=== PATIENT | male | born 1985 | race Caucasian/White ===

== ENCOUNTER 2017-08-22 21:32 | Observation (INO) | payer MEDICAID ==
[~2017-08-22 21:32] MED LIST: DEXAMETHASONE SOD PHOS 4 MG/ML VIAL IV ONE; GLYCOPYRROLATE 1 MG/5 ML SYRINGE IV PUSH ONE; KETOROLAC TROMETHAMINE 30 MG/ML (IVP) VIAL IV PUSH ONE; LACTATED RINGER'S 1000 ML INJ 1,000 ML IV ONE; LIDOCAINE HCL 1% PF 5 ML SYRINGE OTHER ONE; NEOSTIGMINE 5 MG/5 ML SYRINGE IV PUSH ONE; ONDANSETRON HCL 4 MG/2 ML VIAL IV ONE; PROPOFOL 200 MG/20 ML AMP IV ONE; ROCURONIUM INJ 50 MG/5 ML SYRINGE IV PUSH ONE; SUCCINYLCHOLINE CHLORIDE 200 MG/10 ML VIAL IV ONE; ceFAZolin INJ 1,000 MG VIAL IV ONE
[2017-08-22] MEDS ORDERED: BUPIVACAINE/EPINEPHRINE 0.5% PF 30 ML VIAL ONE (22:14)
[2017-08-22] MEDS ORDERED: HYDROmorphone HCL PF 2 MG/ML VIAL IV PRN (23:45)
[2017-08-23] MEDS ORDERED: KETOROLAC TROMETHAMINE 30 MG/ML (IVP) VIAL IVP PRN
[2017-08-23] MEDS ORDERED: diphenhydrAMINE HCL 50 MG/ML VIAL IVP PRN
[2017-08-23] MEDS ORDERED: SODIUM CHLORIDE 0.9% FLUSH 10 ML FLUSH IV FLUSH PRN
[2017-08-23] MEDS ORDERED: ACETAMINOPHEN/HYDROcodone 325 MG/5 MG TAB PO PRN ×2
[2017-08-23] MEDS ORDERED: ONDANSETRON HCL 4 MG/2 ML VIAL IV PUSH PRN
[2017-08-23] MEDS ORDERED: Post-op Orders (for Pharmacy) XX ONE
[2017-08-23] MEDS ORDERED: ACETAMINOPHEN 1000 MG/100 ML 100 ML IV ONE (00:01)
--- NOTE | 2017-08-23 00:11 | HHI.PR ---
Immediate Post Op Note Procedure Date: Aug 23, 2017 Pre Op Diagnosis: acute appendicitis Post Op Diagnosis: same Surgeon: Orlando Flannery MD Rn Hedis(s): see or sheet Procedure: lap appy Findings: inflamed non perf appy Complications: none Specimen(s) removed: appendix Estimated blood loss: 5cc Anesthesia: General Drains: None Patient to: PACU Patient Condition: Good Orlando Flannery MD Aug 23, 2017 00:11
[2017-08-23] MEDS ORDERED: MIDAZOLAM HCL 2 MG/2 ML VIAL ONE (01:11)
[2017-08-23] MEDS ORDERED: POVIDONE IODINE 5% (ANTISEPSIS KIT) 4 APPLICATIONS EACH NARE PRN (01:30)
[2017-08-23] MEDS ORDERED: LACTATED RINGER'S 1000 ML IV PRN (01:30)
[2017-08-23] MEDS ORDERED: DO NOT ADM ANY ANTICOAGULANT DRUGS PRN (01:30)
[2017-08-23] MEDS ORDERED: CHLORHEXIDINE GLUCONATE 2 % 1 PACK (2 CLOTHS) TOPICAL PRN (01:30)
[2017-08-23 02:15] VITALS: BP 105/55; PULSE 65; RESP 15; TEMP 97.1; O2SAT 100
[2017-08-23 04:00] VITALS: BP 129/59; PULSE 88; RESP 15; TEMP 97.3; O2SAT 95
[2017-08-23 06:56] LABS: AUTOMATED NEUTROPHIL # 12.6 TH/MM3 (1.8-7.7); HEMOGLOBIN 13.3 GM/DL (13.0-17.0); LYMPH % 7.5 % (9.0-44.0); MEAN CELL VOLUME 92.9 FL (80.0-100.0); MEAN CORPUSCULAR HEMOGLOBIN 33.4 PG (27.0-34.0); MEAN CORPUSCULAR HGB CONC 35.9 % (32.0-36.0); MEAN PLATELET VOLUME 8.8 FL (7.0-11.0); MONO % 1.6 % (0.0-8.0); MONOCYTE # 0.2 TH/MM3 (0-0.9); NEUT % 90.9 % (16.0-70.0); PLATELET COUNT 207 TH/MM3 (150-450); RED BLOOD COUNT 3.99 MIL/MM3 (4.50-5.90); RED CELL DISTRIBUTION WIDTH 13.1 % (11.6-17.2); WHITE BLOOD COUNT 13.9 TH/MM3 (4.0-11.0)
[2017-08-23 07:20] LABS: BICARBONATE 26.9 MEQ/L (21.0-32.0); CALCIUM 8.9 MG/DL (8.5-10.1); CREATININE 1.06 MG/DL (0.60-1.30)
[2017-08-23 08:00] VITALS: BP 113/59; PULSE 60; RESP 14; TEMP 97.2; O2SAT 98
--- NOTE | 2017-08-23 08:54 | MH ---
cc: RUBEN ALTAMIRANO MD DATE OF ADMISSION 08/23/2017 CHIEF COMPLAINT Abdominal pain, appendicitis. HISTORY OF PRESENT ILLNESS The patient is 31-year-old male who presents to [facility] with an acute onset of abdominal pain. He states the pain started around 02:00 p.m. and continued to get worse, than it was a 9/10, sharp, radiating from his umbilicus to his right lower quadrant. It was better with lying still, worse with movement, had some associated nausea and never had pain quite like this severe. He had a CT scan evaluation with findings of concern for acute appendicitis. The patient also with leukocytosis of 16,000. Therefore surgery consulted for further evaluation. PAST MEDICAL HISTORY No past medical history. PAST SURGICAL HISTORY No surgeries. ALLERGIES NO KNOWN DRUG ALLERGIES. MEDICATIONS See EMR. FAMILY HISTORY Denies diabetes or hypertension. SOCIAL HISTORY Denies smoking, occasional ETOH, denies IVDA. REVIEW OF SYSTEMS GENERAL: Denies fevers or chills. HEENT: Denies eye pain or ear pain. NECK: Denies swelling or pain. LUNGS: Denies cough or wheeze. HEART: Denies palpitations or chest pain. ABDOMEN: Complaint of abdominal pain and nausea. Denies vomiting. : Denies dysuria or hematuria. ENDOCRINE: Denies polyuria, polydipsia. EXTREMITIES: Denies arthralgia or myalgias. PSYCH: Denies change in mood or sensorium. PHYSICAL EXAMINATION VITAL SIGNS: Temperature 98.2, pulse 78, respirations 12, blood pressure 133/77, saturation 100%. HEENT: Normocephalic, atraumatic. Pupils equal, round, and reactive. NECK: Supple. Trachea midline. LUNGS: Clear to auscultation bilateral. Bilateral expansion. HEART: S1-S2 regular rhythm. ABDOMEN: Soft, positive tenderness to palpation in the right lower quadrant. Minimal rebound, nondistended. EXTREMITIES: Warm, well-perfused. No edema. NEUROLOGIC: 5/5 motor in all extremities. AO x four. INTEGUMENT: No obvious masses or lesions. PSYCH: Appropriate judgment, appropriate insight. LABORATORY AND DIAGNOSTIC DATA WBC 16.2, hemoglobin 13.7, hematocrit 36.3, platelets 220. Sodium 140, potassium 3.7, chloride 106, BUN 13, creatinine 1, AST is 36, ALT 61, alkaline phosphatase 111, lipase 134, INR is 1. CT reviewed by myself showing acute appendicitis. No evidence of abscess. ASSESSMENT The patient is a 31-year-old male who presents with acute onset of appendicitis. PLAN After a full clinical, radiologic and laboratory workup, the patient with above-named issues including acute appendicitis. At this point, the patient will go to the operating room for intervention including laparoscopic appendectomy. Discussed with the patient in detail. He states understanding and agrees and would like to proceed. We will keep the patient n.p.o., IV fluids, pain control and IV antibiotics. MD LAKIA Gray/JIN /11:50 PM /8:35 AM
[2017-08-23] MEDS ORDERED: DOCUSATE SODIUM 100 MG CAP PO SCH (09:00)
[2017-08-23] MEDS: SODIUM CHLORIDE 0.9% FLUSH 10 ML FLUSH IV FLUSH SCH ×2 (09:00)
[2017-08-23] MEDS: SODIUM CHLOR 0.9% 1000 ML INJ 1,000 ML IV SCH ×2 (10:00)
[2017-08-23] MEDS: metroNIDAZOLE 500 MG INJ 100 ML IV SCH ×2 (11:09→18:11)
[2017-08-23 12:00] VITALS: BP 115/67; PULSE 61; RESP 15; TEMP 96.9; O2SAT 100
[2017-08-23 15:07] LABS: AUTOMATED NEUTROPHIL # 9.5 TH/MM3 (1.8-7.7); BASOPHIL % 0.2 % (0.0-2.0); EOSINOPHIL % 0.1 % (0.0-4.0); HEMATOCRIT 37.7 % (39.0-51.0); HEMOGLOBIN 13.4 GM/DL (13.0-17.0); LYMPH % 12.8 % (9.0-44.0); LYMPHOCYTE # 1.5 TH/MM3 (1.0-4.8); MEAN CELL VOLUME 92.6 FL (80.0-100.0); MEAN CORPUSCULAR HGB CONC 35.6 % (32.0-36.0); MEAN PLATELET VOLUME 9.2 FL (7.0-11.0); MONO % 4.9 % (0.0-8.0); MONOCYTE # 0.6 TH/MM3 (0-0.9); PLATELET COUNT 202 TH/MM3 (150-450); RED BLOOD COUNT 4.08 MIL/MM3 (4.50-5.90); RED CELL DISTRIBUTION WIDTH 12.8 % (11.6-17.2); WHITE BLOOD COUNT 11.6 TH/MM3 (4.0-11.0)
[2017-08-23] MEDS ORDERED: HYDR-3516 PO (15:55)
[2017-08-23 16:00] VITALS: BP 112/58; PULSE 66; RESP 16; TEMP 98; O2SAT 100
[2017-08-24] MEDS ORDERED: ENOXAPARIN SODIUM 30 MG/0.3 ML SYRINGE SQ SCH
--- NOTE | 2017-08-25 13:45 | MP ---
cc: RUBEN FLANNERY MD DATE OF SURGERY: 08/23/2017 PREOPERATIVE DIAGNOSIS: Acute appendicitis. POSTOPERATIVE DIAGNOSIS: Acute appendicitis. PROCEDURE PERFORMED: Laparoscopic appendectomy SURGEON: Dr. Ruben Flannery. 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 ANESTHESIA GETA. ESTIMATED BLOOD LOSS: 5 cc DRAINS: None. COMPLICATIONS: None. WOUND CLASSIFICATION Clean-contaminated. SPECIMEN: Appendix. FINDINGS: Distal indurated fibrosed appendix consistent with appendicitis. INDICATION The patient is a 31-year-old male who presented with acute onset of right lower quadrant pain for approximately 24 hours. The patient went to the emergency department for further evaluation including CT scan showing acute appendicitis. Therefore decision was made for operative intervention including laparoscopic appendectomy. DETAILS OF PROCEDURE: The patient was taken to the operating suite, placed in supine position, prepped and draped in usual sterile fashion after adequate general endotracheal anesthesia. Brief time-out done stating correct patient, procedure, surgical site. Attention was directed to the umbilicus where local anesthesia injected. A small stab tho incision was made. A Veress needle was placed, intra-abdominal placement confirmed saline drop test. The Veress needle was changed for a 5 mm Visiport scope. Cursory inspection showed no evidence of injury. Two other ports placed, one suprapubic 5 mm followed by left lower quadrant 12 mm. The patient placed in Trendelenburg airplaned to the left. The right lower quadrant was identified. There was noted to be a very indurated appendix with a relatively normal base of the appendix. Small window was made in the base of the appendix with [place] and electro Bovie cautery. The appendix was then transected with Endo-ANGELA stapler. This appendix was placed in the EndoCatch bag removed from the abdomen through the left lower quadrant port. Hemostasis was obtained to the staple line. The pneumoperitoneum was removed. The ports were removed, 0 Vicryl was used for fascial suture of the left lower quadrant, 4-0 Monocryl was done with subcuticular sutures at all port sites. Sterile dressings including Mastisol, Steri-Strips were placed. The patient tolerated the procedure well. No intraoperative complications. All laps and counts were correct at the end of the procedure. The patient was extubated and taken stable to the PACU. MD LAKIA Gray/MP /10:37 AM /1:29 PM
== END 2017-08-23 19:12 | disposition home or self-care (01) ==
LOC: NEDDLT 21:32 → N06A 23:49 → NEDDLT 08-23 01:25 → N06A 08-23 01:35 → UNDOADMOB 08-23 01:35 → UNDODISOB 08-23 19:12
PROVIDERS: ADMIT Surgery; ATTEND Surgery
DX: K35.80 Unspecified acute appendicitis (principal)
CPT/HCPCS: 00840; 44970; 74177; 80048; 80053; 83605; 83690; 85025; 85610; 85730; 88304; 94150; 96361; 96365; 96374; 96375; 96376; 99285; G0378; J0131; J0330; J0690; J1100; J1885; J2250; J2270; J2405; J2710; J3010; J7030; J7120; Q9967